=== PATIENT | male | born 1965 | race Caucasian/White ===

== ENCOUNTER 2025-06-16 11:34 | Inpatient (IN) | payer MEDICAID, OTHER ==
[~2025-06-16] VITALS: Ht 165.1 cm; Wt 71.4 kg
[2025-06-16 11:58] LABS: COVID AG,FIA SOURCE NASAL SWAB
[2025-06-16 11:59] LABS: APPEARANCE,URINE CLEAR (CLEAR); GLUCOSE, URINE (UA) NEGATIVE (NEGATIVE); LEUKOCYTE ESTERASE ,URINE MODERATE (NEGATIVE); NITRATE,URINE NEGATIVE (NEGATIVE); OCCULT BLOOD,URINE TRACE (NEGATIVE); PH,URINE DRUG SCREEN 5.5 (5.0-8.0); SPECIFIC GRAVITIY, URINE 1.019 (1.003-1.030)
[2025-06-16 12:16] LABS: PLATELET COUNT (AUTO) 161 K/uL (150-450); RED BLOOD CELL COUNT(AUTO) 4.60 MIL/uL (4.50-5.90); RED CELL DISTRIBUTION WIDTH 22.7 % (11.5-14.5); WHITE BLOOD COUNT (AUTO) 7.6 K/uL (4.5-11.0)
[2025-06-16 12:17] LABS: CALCIUM, TOTAL 9.0 mg/dL (8.8-10.5); CREATININE 1.45 mg/dL (0.60-1.30); GLOMERULAR FILTR. RATE CALC 50.0 mL/min (>60); GLUCOSE,RANDOM 114.0 mg/dL (70-110); SODIUM SERUM 133.0 mmol/L (136-145); UREA NITROGEN, BLOOD 42.0 mg/dL (7-18)
[2025-06-16 12:17] LABS: HYALINE CASTS, URINE 0-2 /LPF (None Seen)
[2025-06-16 12:19] LABS: SARS-COV2 (COVID) ANTIGEN,FIA Negative (Negative)
[2025-06-16] MEDS ORDERED: BISA-151 PO (12:22)
[2025-06-16] MEDS ORDERED: BISA10SU11 PR (12:22)
[2025-06-16] MEDS ORDERED: SODI133E17 PR ×2 (12:22)
[2025-06-16] MEDS ORDERED: GABA-1181 PO (12:22)
[2025-06-16] MEDS ORDERED: HYDR25TA83 PO (12:22)
[2025-06-16] MEDS ORDERED: DICL100G60 TP (12:22)
[2025-06-16] MEDS ORDERED: CARV3 PO (12:22)
[2025-06-16] MEDS ORDERED: AMOX500T2 PO (12:22)
[2025-06-16] MEDS ORDERED: LACT10SO85 PO (12:22)
[2025-06-16] MEDS ORDERED: AMMO225L14 TP (12:22)
[2025-06-16] MEDS ORDERED: HYDR-4268 TP (12:22)
[2025-06-16 12:29] LABS: AMPHET/METH SCREEN,URINE NEGATIVE (NEGATIVE); BARBITURATE SCREEN, URINE NEGATIVE (NEGATIVE); CANNABINOID SCREEN,URINE NEGATIVE (NEGATIVE); COCAINE SCREEN,URINE NEGATIVE (NEGATIVE); METHADONE SCREEN, URINE NEGATIVE (NEGATIVE)
[2025-06-16 12:31] LABS: ALCOHOL, URINE DRUG SCREEN NEGATIVE (NEGATIVE)
[2025-06-16 13:14] LABS: RBC MORPHOLOGY COMMENT ABNORMAL RBC MORPH
[2025-06-16] MEDS ORDERED: MAGN-169 PO (13:24)
[2025-06-16] MEDS ORDERED: POLY17PO47 PO (13:24)
[2025-06-16] MEDS ORDERED: MULT-1303 PO (13:24)
[2025-06-16] MEDS ORDERED: LORA0.5T20 PO (13:24)
[2025-06-16] MEDS ORDERED: NALO4SPR NASAL (13:24)
[2025-06-16] MEDS ORDERED: METH-659 PO (13:24)
[2025-06-16] MEDS ORDERED: PYRI25TA4 PO (14:34)
[2025-06-16] MEDS ORDERED: RIFAX550 PO (14:34)
[2025-06-16] MEDS ORDERED: VENL75TA73 PO (14:34)
[2025-06-16] MEDS ORDERED: ACET650S24 PR (14:34)
[2025-06-16] MEDS ORDERED: BUPR1TAB45 SL (14:34)
[2025-06-16] MEDS ORDERED: CHOL500013 PO (14:34)
[2025-06-16] MEDS ORDERED: THIA100T92 PO (14:34)
[2025-06-16] MEDS ORDERED: POTA-92 PO (14:34)
[2025-06-16] MEDS ORDERED: MAGNESIUM HYDROXIDE SUSPENSION 30 ML UDCUP PO PRN (14:45)
[2025-06-16] MEDS ORDERED: GuaiFENesin/D-METHORPHAN [SUGAR-FREE] 200-20MG/10 ML SYRUP UDCUP PO PRN (14:45)
[2025-06-16] MEDS ORDERED: PROMETHAZINE HCL 25 MG TABLET PO PRN (14:45)
[2025-06-16] MEDS ORDERED: TUBERCULIN, PURIFIED PROTEIN DERIVATIVE 5 TU/0.1 ML SYRINGE ID ONE (14:45)
[2025-06-16] MEDS ORDERED: MAG HYDROX/ALUMINUM HYD/SIMETH ES 30 ML SUSPENSION UDCUP PO PRN (14:45)
[2025-06-16] MEDS ORDERED: LOPERAMIDE HCL 2 MG CAPSULE PO PRN ×2 (14:45)
[2025-06-16] MEDS: CYANOCOBALAMIN 1,000 MCG/ML VIAL IM ONE (15:00)
[2025-06-16] MEDS: NICOTINE 21 MG/24 HOUR PATCH TD ONE (15:04)
[2025-06-16] MEDS: CefTRIAXone SODIUM 1 GM/VIAL IM ONE (15:50)
[2025-06-16] MEDS: LIDOCAINE/PF 1% 2 ML VIAL IM ONE (15:50)
[2025-06-16 17:54] VITALS: BP 136/71; PULSE 78; RESP 18; TEMP 97.6; O2SAT 98
[2025-06-16] MEDS: THIAMINE 100 MG TABLET PO SCH (17:55)
[2025-06-16 20:00] VITALS: BP 125/80; PULSE 80; RESP 18; TEMP 97.5; O2SAT 99
[2025-06-16] MEDS: LACTULOSE 20 GM/30 ML SOLUTION UDCUP PO SCH (21:03)
[2025-06-16] MEDS: MELATONIN 5 MG TABLET PO SCH (21:03)
[2025-06-16 21:54] VITALS: BP 120/70; PULSE 83; RESP 18; TEMP 97.5; O2SAT 97
[2025-06-16] MEDS: ACETAMINOPHEN 325 MG TABLET PO PRN (21:55)
[2025-06-16 22:54] VITALS: RESP 18
[2025-06-17 03:01] VITALS: BP 130/72; PULSE 80; RESP 16; TEMP 97.5; O2SAT 99
[2025-06-17 04:01] VITALS: RESP 18
[2025-06-17] MEDS ORDERED: ACETAMINOPHEN/CODEINE 300-30 MG TABLET PO PRN (07:00)
[2025-06-17 07:31] LABS: PLATELET COUNT (AUTO) 163 K/uL (150-450); RED BLOOD CELL COUNT(AUTO) 4.11 MIL/uL (4.50-5.90); RED CELL DISTRIBUTION WIDTH 22.4 % (11.5-14.5); WHITE BLOOD COUNT (AUTO) 8.5 K/uL (4.5-11.0)
[2025-06-17 07:50] LABS: ASPARTATE AMINOTRANSFERASE 44.0 U/L (15-37); CALCIUM, TOTAL 9.0 mg/dL (8.8-10.5); CREATININE 1.28 mg/dL (0.60-1.30); GLOMERULAR FILTR. RATE CALC 57.0 mL/min (>60); GLUCOSE,RANDOM 120.0 mg/dL (70-110); SODIUM SERUM 138.0 mmol/L (136-145); TOTAL PROTEIN, SERUM 10.7 g/dL (6.4-8.2); UREA NITROGEN, BLOOD 36.0 mg/dL (7-18)
[2025-06-17 07:59] LABS: RBC MORPHOLOGY COMMENT ABNORMAL RBC MORPH
[2025-06-17] MEDS: DULoxetine HCL 20 MG CAPSULE PO SCH (08:55)
[2025-06-17] MEDS: FOLIC ACID 1 MG TABLET PO SCH (08:55)
[2025-06-17] MEDS: MULTIVITAMINS WITH MINERALS, THERAPEUTIC TABLET PO SCH (08:55)
[2025-06-17 12:33] VITALS: BP 151/64; PULSE 84; RESP 18; TEMP 98; O2SAT 98
[2025-06-17] MEDS ORDERED: MAGNESIUM HYDROXIDE SUSPENSION 30 ML UDCUP PO PRN (16:45)
[2025-06-17] MEDS ORDERED: ACETAMINOPHEN 325 MG TABLET PO PRN (16:45)
[2025-06-17] MEDS ORDERED: LOPERAMIDE HCL 2 MG CAPSULE PO PRN (16:45)
[2025-06-17] MEDS ORDERED: TUBERCULIN, PURIFIED PROTEIN DERIVATIVE 5 TU/0.1 ML SYRINGE ID ONE (16:45)
[2025-06-17] MEDS ORDERED: MAG HYDROX/ALUMINUM HYD/SIMETH ES 30 ML SUSPENSION UDCUP PO PRN (16:45)
[2025-06-17] MEDS ORDERED: PROMETHAZINE HCL 25 MG TABLET PO PRN (16:45)
[2025-06-17] MEDS ORDERED: GuaiFENesin/D-METHORPHAN [SUGAR-FREE] 200-20MG/10 ML SYRUP UDCUP PO PRN (16:45)
[2025-06-17] MEDS ORDERED: THIAMINE 100 MG TABLET PO SCH (17:00)
[2025-06-17] MEDS: DIVALPROEX SODIUM 500 MG ER TABLET PO SCH (18:32)
[2025-06-17 22:46] VITALS: RESP 18
[2025-06-18 07:26] LABS: CHOL/HDL RATIO 2.9 (4.2-7.3); LDL CHOL (CALC.) 39.0 mg/dL (0-130)
[2025-06-18] MEDS ORDERED: FOLIC ACID 1 MG TABLET PO SCH (09:00)
[2025-06-18] MEDS ORDERED: MULTIVITAMINS WITH MINERALS, THERAPEUTIC TABLET PO SCH (09:00)
[2025-06-18 09:51] VITALS: BP 135/50; PULSE 76; RESP 16; TEMP 98; O2SAT 100
[2025-06-18] MEDS: GABAPENTIN 100 MG CAPSULE PO SCH (21:10)
[2025-06-18 21:51] VITALS: BP 129/63; PULSE 74; RESP 18; TEMP 97.7
[2025-06-19 00:19] VITALS: BP 114/71; PULSE 81; RESP 18; TEMP 97.8
[2025-06-19] MEDS: IBUPROFEN 600 MG TABLET PO PRN (00:25)
[2025-06-19 01:19] VITALS: RESP 18
[2025-06-19] MEDS: MEMANTINE HCL 5 MG TABLET PO SCH (08:54)
[2025-06-19 11:58] LABS: PLATELET COUNT (AUTO) 119 K/uL (150-450); RED BLOOD CELL COUNT(AUTO) 3.57 MIL/uL (4.50-5.90); RED CELL DISTRIBUTION WIDTH 23.1 % (11.5-14.5); WHITE BLOOD COUNT (AUTO) 5.5 K/uL (4.5-11.0)
[2025-06-19 12:07] LABS: ASPARTATE AMINOTRANSFERASE 39.0 U/L (15-37); CALCIUM, TOTAL 8.5 mg/dL (8.8-10.5); CREATININE 1.47 mg/dL (0.60-1.30); GLOMERULAR FILTR. RATE CALC 49.0 mL/min (>60); GLUCOSE,RANDOM 98.0 mg/dL (70-110); SODIUM SERUM 137.0 mmol/L (136-145); TOTAL PROTEIN, SERUM 9.1 g/dL (6.4-8.2); UREA NITROGEN, BLOOD 41.0 mg/dL (7-18)
[2025-06-19 12:21] LABS: RBC MORPHOLOGY COMMENT ABNORMAL RBC MORPH
[2025-06-19] MEDS: LACTULOSE 20 GM/30 ML SOLUTION UDCUP PO SCH (16:04)
[2025-06-19 23:18] VITALS: BP 137/56; PULSE 77; RESP 18; TEMP 97.7
[2025-06-19 23:45] VITALS: BP 127/61; PULSE 73; RESP 18; TEMP 98.1
[2025-06-20] MEDS: AMOXICILLIN TRIHYDRATE 500 MG CAPSULE PO SCH (08:28)
[2025-06-20 18:14] VITALS: BP 122/65; PULSE 79; RESP 18; TEMP 97.5
[2025-06-20 20:08] VITALS: BP 136/61; PULSE 85; RESP 18; TEMP 98.1; O2SAT 97
[2025-06-21 09:39] VITALS: BP 121/52; PULSE 74; RESP 18; TEMP 97.8; O2SAT 99
[2025-06-21 11:22] LABS: ASPARTATE AMINOTRANSFERASE 50 U/L (15-37); CALCIUM, TOTAL 8.4 mg/dL (8.8-10.5); CREATININE 0.94 mg/dL (0.60-1.30); GLOMERULAR FILTR. RATE CALC > 60 mL/min (>60); GLUCOSE,RANDOM 194 mg/dL (70-110); SODIUM SERUM 136 mmol/L (136-145); TOTAL PROTEIN, SERUM 9.4 g/dL (6.4-8.2); UREA NITROGEN, BLOOD 31 mg/dL (7-18)
[2025-06-21] MEDS ORDERED: MELA5TAB40 PO (20:20)
[2025-06-21] MEDS ORDERED: MEMA5TAB41 PO (20:20)
[2025-06-21] MEDS ORDERED: RISP0.5T80 PO ×2 (20:20)
[2025-06-21] MEDS ORDERED: GABA-1216 PO (20:20)
[2025-06-21] MEDS ORDERED: DIVA-153 PO (20:20)
[2025-06-21 20:30] VITALS: BP 120/70; PULSE 81; RESP 17; TEMP 97.5; O2SAT 97
[2025-06-21 21:36] VITALS: RESP 18
[2025-06-22 08:00] VITALS: BP 142/67; PULSE 78; RESP 17; TEMP 98.8; O2SAT 98
[2025-06-22] MEDS ORDERED: AMOX500C2 PO (10:30)
[2025-06-22] MEDS ORDERED: FOLI-130 PO (10:34)
[2025-06-22] MEDS ORDERED: LACT10SO85 PO (10:34)
== END 2025-06-22 13:55 | DRG 750 ==
LOC: EMS 11:36 → EDH 15:31 → UNDOADMIN 15:31 → 3EI 17:17
PROVIDERS: ADMIT Psychiatry & Neurology Psychiatry; ATTEND Psychiatry & Neurology Psychiatry
PROC: GZHZZZZ Group Psychotherapy (ICD-10-PCS; principal; 2025-06-16)
PROC: GZ56ZZZ Individual Psychotherapy, Supportive (ICD-10-PCS; 2025-06-16)
PROC: GZ58ZZZ Individual Psychotherapy, Cognitive-Behavioral (ICD-10-PCS; 2025-06-16)
DX: F20.9 Schizophrenia, unspecified (principal); E03.9 Hypothyroidism, unspecified; F03.94 Unspecified dementia, unspecified severity, with anxiety; F17.200 Nicotine dependence, unspecified, uncomplicated; I48.91 Unspecified atrial fibrillation; Z20.822 Contact with and (suspected) exposure to COVID-19; K59.09 Other constipation; J44.9 Chronic obstructive pulmonary disease, unspecified; N39.0 Urinary tract infection, site not specified; Z79.899 Other long term (current) drug therapy; Z55.9 Problems related to education and literacy, unspecified; Z59.9 Problem related to housing and economic circumstances, unspecified; Z63.9 Problem related to primary support group, unspecified; Z65.3 Problems related to other legal circumstances; Z87.440 Personal history of urinary (tract) infections
CPT/HCPCS: 71046; 80048; 80053; 80061; 80307; 81001; 82140; 83036; 84439; 84443; 85025; 86592; 87086; 99285; G0480; J0696; J3420; J3490; 36415-L1; 36415-TC